=== PATIENT | female | born 2000 | race Caucasian/White ===

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

== ENCOUNTER 2020-03-31 14:05 | Emergency (ER) | payer BC ==
--- OUTSIDE RECORDS SUMMARY | 2020-03-31 14:07 | XMS REPORT | Continuity of Care Document ---
:2000 Author Organization [facility] t Address [address] [place] [address] Care Team Providers Name Role Phone Doctor Unassigned, Name Attending Clinician Unavailable Gelacio WRIGHT M Attending Clinician Unavailable Rudi WRIGHT, L Attending Clinician Dede BENTON Attending Clinician Unavailable Dede BENTON Admitting Clinician Unavailable Problems Condition Condition Condition Status Onset Resolution Last Treating Co mments Source Name Details Category Date Date Treatment Clinician Date Retained Retained Disease [facility] l 00 Center Allergies, Adverse Reactions, Alerts Allergy Allergy Status Severity Reaction(s) Onset Inactive Treating Comm ents Source Name Type Date Date Clinician Clindamy Drug Active Hives [facility] Codeine Drug Active Shortness Of [facility] Social History Social Habit Start Date Stop Date Quantity Comments Source History [facility] - Alcohol Std Drinks Medica l Center History [facility] - Alcohol [facility]inge Medical Ledy ter Sex Assigned At [facility] Tobacco use and 2018-10-10 2018-10-[address] [facility] [facility] - exposure 00:00:00 00:00:00 Medical Center Alcohol intake 2018-10-10 2018-10-[address] [facility] Evelyn es - 00:00:00 00:00:00 non-drinker of Medical Ce nter alcohol (finding) History [facility] 2018-10-07 2018-10-07 1 JOSELINE Gauthier Lusurinder - Alcohol Frequency 00:00:00 00:00:00 Medical Center Smoking Status Start Date Stop Date Source Never smoker [facility] Medications Ordered Filled Start Stop Current Ordering Indication Dosage Frequency Signature Comments Components Source Medication Medication Date Date Medication? Clinician (SIG) Name Name medroxyPROG 2019- Yes medroxypro [facility] - (DEPO-PROVE 12:21: 150 mg/mL M edical RA) 150 46 intramuscu Center mg/mL lar injection suspension INJECT 1 ML EVERY 3 MONTHS BY INTRAMUSCU LAR ROUTE DIRECTED. gabapentin Yes 300mg Take [address] (NEURONTIN) 7-26 mg by [facility] - 300 MG 12:21: mouth 3 Medical capsule 46 (three) Center times daily as needed. Procedures This patient has no known procedures. Plan of Care Planned Activity Planned Date Details Comments Source Future Scheduled 2019-11-[address] [facility] - Test 00:00:00 (#1) [code = [facility] Center INFLUENZA VACCINE (#1)] Encounters Start End Encounter Admission Attending Care Care Encounter Source Date/Time Date/Time Type Type Clinicians Facility Department ID 2019-10-19 2019-10-19 Orders Doctor BOBBY [id number] 00:00:00 00:00:00 Only Unassigned, HODA [id number] [place] [facility] [id number] [id number] 2019-05-11 2019-05-11 Office HAZEL Benton [id number] 08:23:18 09:24:01 Visit Reddy Marrero AMBULATOR [id number] Y [id number] [id number] 2019-01-13 2019-01-13 Office HAZEL Benton [id number] 15:18:55 15:43:31 Visit Reddy Marrero AMBULATOR [id number] Y [id number] [id number] 2018-10-23 2018-10-23 Office HAZEL Benton [id number] 15:38:13 16:06:20 Visit Reddy Marrero AMBULATOR [id number] Y [id number] [id number] 2018-10-15 2018-10-15 Orders Doctor BOBBY [id number] 00:00:00 00:00:00 Only Unassigned, HODA [id number] [place] [address]686 [id number] 2018-10-13 2018-10-13 [facility] [id number] 12:12:29 23:59:00 Encounter Michael Evans [id number] [place] 4.2.7.2.686 [place] [id number] 2018-10-13 2018-10-13 Orders Doctor BOBBY [id number] 00:00:00 00:00:00 Only Unassigned, HODA [id number] [place] [address]686 [id number] Results Test Description Test Time Test Comments Results Result Comments Source TISSUE EXAM 2018-10-13 Surgical Pathology 10:41:00 Report Case: [id number] Authorizing Provider: Reddy Benton MD Collected: 10/10/2018 1111 Ordering Location: [facility] OR Received: 10/10/2018 1619 Perioperative Services Pathologist: Tammy Britt MD Specimen: Explant, hardware removed from left ankle 5 screws and 1 plate ANKLE, LEFT, HARDWARE REMOVED: - ORTHOPEDIC HARDWARE IDENTIFIED (SEE COMMENT)CG/pl Signing Pathologist Direct Phone Line: [phone] icay signed by Tammy Britt MD on 10/13/2018 at 10:41 [id number] and postop diagnosis: mechanical complications of internal orthopedic device, implanted graft, subsequent encounter Explant, hardware removed from left ankle, 5 screws and 1 plateReceived fresh labeled with the patient's name, accession number and "explant" are five fully threaded metallic screws ranging 2.0-3.1 cm in length, each 0.3 cm in diameter. Also received is a metallic plate measuring 7.1 x 0.9 x 0.1 cm. The plate has six holes each measuring 0.5 cm in diameter. The plate is inscribed with [id number] [id number] A gross photograph is taken. No sections are submitted - gross only. CG/pl SCREEN, URINE 2018-10-10 06:32:00 Test Item Value Reference Range Interpretation Comme nts TEST URINE (BEAKER) (test code = 583) Negative [id number] 06:26:00 Test Item Value Reference Range Interpretation Comments HEMOGLOBIN (BEAKER) (test code = 13.5 GM/DL 11.2-15.7 410)
--- OUTSIDE RECORDS SUMMARY | 2020-03-31 14:07 | XMS REPORT | Clinical Summary ---
:2000 Author Organization [facility] Address [address] [place] [address] Care Team Providers Name Role Phone Unavailable Primary Care Provider Unavailable Allergies Active Allergy Reactions Severity Noted Date Comments Clindamycin Hcl Hives Medium 10/05/2018 Codeine Shortness Of Breath High 10/05/2018 Medications Medication Sig Dispensed Refills Start End Status Date Date medroxyPROGESTERone medroxyprogesterone 150 mg/mL intramuscular suspen alise 0 Active (DEPO-PROVERA) 150 INJECT 1 ML EVERY 3 MONTHS BY INTRAMUSCULAR ROUTE DIRECTED. mg/mL injection gabapentin (NEURONTIN) Take 300 mg by mouth 3 0 Active 300 MG capsule (three) times daily as needed. Active Problems Problem Noted Date Retained orthopedic hardware 10/10/2018 Social History Tobacco Use Types Packs/Day Years Used Date Never Smoker Smokeless Tobacco: Never Used Alcohol Use Drinks/Week oz/Week Comments No Alcohol Habits Answer Date Recorded How often do you have a drink containing alcohol? Never 10/07/2018 How many drinks containing alcohol do you have on a typical Not asked day when you are drinking? How often do you have six or more drinks on one occasion? No t asked Sex Assigned at Date Recorded Not on file Last Filed Vital Signs Not on file Plan of Treatment Health Maintenance Due Date Last Done Comments INFLUENZA VACCINE (#1) 2019 Results Not on fileafter 03/31/2019 Insurance Payer Benefit Plan Subscriber ID Effective Dates Phone Address Type / Group BLUE BCBS BLUE [id number] 2018-Dayana [phone] [address] PPO CROSS/BLUE OPTIONS t [address] [facility] [id number] Advance Directives For more information, please contact: [phone] Code Status Date Activated Date Inactivated Comments Full Code 10/10/2018 5:52 AM 10/10/2018 2:21 PM This code status was determined by: Patient
[2020-03-31 16:37] LABS: SARS-COV-2 RT PCR NEGATIVE (NEGATIVE)
--- NOTE | 2020-03-31 16:52 | ER ---
Nurse's Notes [facility] Name: Kacie Storm Age: 20 yrs Sex: Female : 2000 Arrival Date: 03/31/2020 Time: 14:07 Bed 8 Private MD: Diagnosis: Acute upper respiratory infection, unspecified Presentation: 03/31 14:11 Chief complaint: Patient states: SOB, chest congestion, sore throat, cough, runny nose, ca1 fever x 2 days. Denies N/V/D. Coronavirus screen: congestion, cough unrelated to allergies, difficulty breathing, runny nose, shortness of breath. Ebola Screen: Patient negative for fever greater than or equal to 101.5 degrees Fahrenheit, and additional compatible Ebola Virus Disease symptoms Patient denies exposure to infectious person. Patient denies travel to an Ebola-affected area in the 21 days before illness onset. No symptoms or risks identified at this time. Initial Sepsis Screen: Does the patient meet any 2 criteria? No. Patient's initial sepsis screen is negative. Does the patient have a suspected source of infection? No. Patient's initial sepsis screen is negative. Risk Assessment: Do you want to hurt yourself or someone else? Patient reports no desire to harm self or others. Onset of symptoms was March 31, 2020. 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 - Social history:: Smoking status: Patient denies any tobacco usage or history of. Screenin:43 Abuse screen: Denies threats or abuse. Nutritional screening: No deficits noted. rb3 Tuberculosis screening: No symptoms or risk factors identified. Fall Risk None identified. Assessment: 14:43 General: Appears in no apparent distress. comfortable, Behavior is calm, cooperative, rb3 Reports fever for. Neuro: Level of Consciousness is awake, alert, obeys commands, Oriented to person, place, time, situation. Cardiovascular: Patient's skin is warm and dry. Cardiovascular: Reports congestion. Respiratory: Reports shortness of breath cough that is Airway is patent Respiratory effort is even, unlabored, Respiratory pattern is regular, symmetrical. GI: No signs and/or symptoms were reported involving the gastrointestinal system. : No signs and/or symptoms were reported regarding the genitourinary system. EENT: Reports sore throat and runny nose. 14:43 Pain: Denies pain. rb3 15:41 Reassessment: Patient appears in no apparent distress at this time. No changes from rb3 previously documented assessment. 16:39 Reassessment: Patient appears in no apparent distress at this time. Patient and/or rb3 family updated on plan of care and expected duration. Pain level reassessed. Patient is alert, oriented x 3, equal unlabored respirations, skin warm/dry/pink. 17:27 Reassessment: Patient appears in no apparent distress at this time. No changes from rb3 previously documented assessment. Vital Signs: 14:11 BP 144 / 80; Pulse 103; Resp 19 S; Temp 98.1(TE); Pulse Ox 100% on R/A; Weight 88.45 kg ca1 (R); Height 5 ft. 3 in. (160.02 cm) (R); Pain 8/10; 15:30 BP 132 / 94; Pulse 84; Resp 16; Pulse Ox 100% ; rb3 16:30 BP 130 / 90; Pulse 79; Resp 17; Pulse Ox 100% ; rb3 17:30 BP 132 / 94; Pulse 81; Resp 16; Pulse Ox 100% ; rb3 14:11 Body Mass Index 34.54 (88.45 kg, 160.02 cm) ca1 ED Course: 14:07 Patient arrived in ED. as 14:12 Triage completed. ca1 14:13 Arm band placed on right wrist. ca1 14:41 Yadiel Armenta PA is PHCP. [facility] 14:41 Vineet Mott MD is Attending Physician. [facility] 14:43 Patient has correct armband on for positive identification. Bed in low position. Call rb3 light in reach. Side rails up X 1. Pulse ox on. NIBP on. 14:51 Sosa Sheth, RN is Primary Nurse. rb3 15:14 COVID swab sent to lab. Flu and/or RSV swab sent to lab. Strep swab sent to lab. rb3 15:53 Strep Sent. dh3 17:58 No provider procedures requiring assistance completed. Patient did not have IV access rb3 during this emergency room visit. Administered Medications: No medications were administered Outcome: 16:52 Discharge ordered by . dotty 17:58 Discharged to home ambulatory. rb3 17:58 Condition: stable 17:58 Discharge instructions given to patient, Instructed on discharge instructions, follow up and referral plans. medication usage, Demonstrated understanding of instructions, follow-up care, medications, Prescriptions given X 1. 17:59 Patient left the ED. rb3 Signatures: Yadiel Armenta PA PA jmm Martinez, Amelia as Herrera, Deanna 3 Maral Calzada, RN RN Sosa Flynn RN RN rb3
--- NOTE | 2020-03-31 16:53 | EDPHYS ---
Physician Documentation [facility] Name: Kacie Storm Age: 20 yrs Sex: Female : 2000 Arrival Date: 03/31/2020 Time: 14:07 Bed 8 Private MD: ED Physician Vineet Mott HPI: 03/31 15:06 This 20 yrs old Female presents to ER via Ambulatory with complaints of r/o jmm covid. 15:06 The patient or guardian reports cough. Onset: The symptoms/episode began/occurred jmm gradually, 3 day(s) ago. Modifying factors: The symptoms are alleviated by nothing. the symptoms are aggravated by nothing. Associated signs and symptoms: Pertinent positives: fever, sore throat. This is a 20 year old female with no chronic medical conditions that presents to the ED with complaints of cough, congestion, sore throat, fever beginning approx 2 days ago. . 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 - Social history:: Smoking status: Patient denies any tobacco usage or history of. ROS: 15:06 Constitutional: Positive for fever. jmm 15:06 ENT: Positive for sinus congestion, sore throat. 15:06 Respiratory: Positive for cough. 15:06 All other systems are negative. Exam: 15:06 Constitutional: This is a well developed, well nourished patient who is awake, alert, jmm and in no acute distress. Head/Face: atraumatic. Eyes: EOMI, no conjunctival erythema appreciated 15:06 Neck: Trachea midline, Supple Chest/axilla: Normal chest wall appearance and motion. Cardiovascular: Regular rate and rhythm. No edema appreciated Respiratory: Normal respirations, no respiratory distress appreciated Abdomen/GI: Non distended, soft Back: Normal ROM Skin: General appearance color normal MS/ Extremity: Moves all extremities, no obvious deformities appreciated, no edema noted to the lower extremities Neuro: Awake and alert, normal gait Psych: Behavior is normal, Mood is normal, Patient is cooperative and pleasant 15:06 ENT: Posterior pharynx: erythema, that is mild. Vital Signs: 14:11 BP 144 / 80; Pulse 103; Resp 19 S; Temp 98.1(TE); Pulse Ox 100% on R/A; Weight 88.45 kg ca1 (R); Height 5 ft. 3 in. (160.02 cm) (R); Pain 8/10; 15:30 BP 132 / 94; Pulse 84; Resp 16; Pulse Ox 100% ; rb3 16:30 BP 130 / 90; Pulse 79; Resp 17; Pulse Ox 100% ; rb3 17:30 BP 132 / 94; Pulse 81; Resp 16; Pulse Ox 100% ; rb3 14:11 Body Mass Index 34.54 (88.45 kg, 160.02 cm) ca1 MDM: 14:45 Patient medically screened. [facility] 16:50 Data reviewed: vital signs, nurses notes. Counseling: I had a detailed discussion with dotty the patient and/or guardian regarding: the historical points, exam findings, and any diagnostic results supporting the discharge/admit diagnosis, lab results, the need for outpatient follow up, to return to the emergency department if symptoms worsen or persist or if there are any questions or concerns that arise at home. ED course: Patient is alert and non toxic in appearance. No signs of resp distress appreciated. Patient advised to follow up with pcp and otherwise given strict return precautions. Patient understood and agrees with the plan of care. . 03/31 15:02 Order name: Strep; Complete Time: 16:11 [facility] 03/31 16:27 Order name: Throat Culture [facility] 03/31 16:38 Order name: COVID-19/FLU A+B; Complete Time: 16:49 EDWV Administered Medications: No medications were administered Disposition: 04/01 05:52 Co-signature as Attending Physician, Vineet Mott MD I agree with the assessment and kdr plan of care. Disposition: 03/31/20 16:52 Discharged to Home. Impression: Acute upper respiratory infection, unspecified. - Condition is Stable. - Discharge Instructions: Pharyngitis, Upper Respiratory Infection, Adult. - Prescriptions for Zithromax Z- Donaldo 250 mg Oral Tablet - take 1 tablet by ORAL route as directed for 5 days Day 1 - take two (2) tablets one time. Day 2, 3, 4 , 5 take one (1) tablet once daily.; 6 tablet. - Medication Reconciliation Form, Thank You Letter, Antibiotic Education, Prescription Opioid Use form. - Follow up: Private Physician; When: 2 - 3 days; Reason: Recheck today's complaints, Continuance of care, Re-evaluation by your physician. Signatures: Dispatcher [employer] EDMS Vineet Mott MD MD kdr Mickail, Joel, PA PA jmm Acob, Cheryl, RN RN ca1 Sosa Sheth RN RN rb3 Corrections: (The following items were deleted from the chart) 03/31 15:49 15:01 Influenza Screen (A \T\ B)+BA.LAB.BRZ ordered. EDWV EDMS 15:49 15:01 CORONAVIRUS+MR.LAB.BRZ ordered. [facility] EDMS 17:59 16:52 03/31/2020 16:52 Discharged to Home. Impression: Acute upper respiratory rb3 infection, unspecified. Condition is Stable. Forms are Medication Reconciliation Form, Thank You Letter, Antibiotic Education, Prescription Opioid Use. Follow up: Private Physician; When: 2 - 3 days; Reason: Recheck today's complaints, Continuance of care, Re-evaluation by your physician. dotty
[2020-03-31 18:05] VITALS: TEMP 98.1; O2SAT 100
[2020-03-31 18:09] VITALS: BP 132/94
== END 2020-03-31 17:59 | disposition home or self-care (01) ==
LOC: ER 14:05
DX: J06.9 Acute upper respiratory infection, unspecified (principal); Z20.822 Contact with and (suspected) exposure to COVID-19; Z88.3 Allergy status to other anti-infective agents; Z88.5 Allergy status to narcotic agent
CPT/HCPCS: 87070; 87081; 0240U; 99283

== ENCOUNTER 2024-02-16 06:20 | Inpatient (IN) | payer BC ==
[2024-02-16 07:08] LABS: Absolute Basophils 0.1 K/uL (0-0.5); Absolute Eosinophils 0.1 K/uL (0-0.5); Absolute Monocytes 0.4 K/uL (0.1-1.3); Absolute Neutrophil 5.8 K/uL (1.8-8.0); Basophils % 1.4 % (0-1.3); Eosinophils % 0.8 % (0-4.4); Hematocrit 41.8 % (36.0-45.0); Hemoglobin 14.1 g/dL (12.0-15.0); Lymphocytes % 23.2 % (15.3-44.8); MCH 28.7 pg (27.0-35.0); MCHC 33.7 g/dL (32.0-36.0); MCV 85.3 fL (80-100); MPV 8.3 fL (7.6-11.3); Monocytes % 5.2 % (3.3-12.3); Neutrophils % 69.4 % (41.7-73.7); Nucleated Red Blood Cells % 0.2 % (0-0); Platelets 267 thou/uL (152-406); RBC Red Blood Cell Count 4.91 M/uL (3.86-4.86); Red Cell Distribution Width 13.5 % (12.1-15.2)
[2024-02-16] MEDS ORDERED: ONDANSETRON 4 MG/2 ML VIAL ONE (07:12)
[2024-02-16] MEDS ORDERED: NA CHLORIDE 0.9% 1,000 ML ONE ×2 (07:12→07:38)
[2024-02-16 07:26] LABS: ALT/SGPT 50 U/L (13-56); AST/SGOT 34 U/L (15-37); Albumin 4.3 g/dL (3.4-5.0); Albumin/Globulin Ratio 1.2 (1.1-1.8); Alkaline Phosphatase 76 U/L (45-117); Anion Gap 15.9 mEq/L (5.0-15.0); BUN Blood Urea Nitrogen 9 mg/dL (7-18); Bicarbonate 15 mEq/L (21-32); Bilirubin Direct 0.6 mg/dL (0-0.2); Bilirubin Indirect, Calculated 0.6 mg/dL (0.2-0.8); Bilirubin Total 1.2 mg/dL (0.2-1.0); Globulin 3.6 g/dL (2.3-3.5); Glomerular Filtration Rate 109 ml/min (=/>90); Glucose Level 89 mg/dL (74-106); NT PRO-BNP 39 pg/mL (<125); Potassium 2.9 mEq/L (3.5-5.1); Protein, Total 7.9 g/dL (6.4-8.2); Sodium Level 139 mEq/L (136-145); Troponin High Sensitivity < 3.0 pg/mL (<58.9)
[2024-02-16] MEDS ORDERED: NS KCL 20MEQ 1,000 ML IV ONE (07:38)
[2024-02-16] MEDS ORDERED: KCL 20 MEQ/100 mL IVPB 100 ML IV ONE (07:39)
[2024-02-16 07:47] LABS: Specific Gravity > 1.030 (1.005-1.030); Sqamous Epithelial <5 /HPF (None Seen); Transitional Epithelial <5 /HPF (None Seen); Urine Bacteria <20 /HPF (<20); Urine Bilirubin NEGATIVE (Negative); Urine Blood Negative (Negative); Urine Clarity Turbid (Clear); Urine Color Yellow (Yellow); Urine Culture Reflex Order NOT NEEDED; Urine Glucose NEGATIVE (Negative); Urine Ketones 4+ (Over) (Negative); Urine Micro Reflex YN NO BILL MICROSCOPIC; Urine Mucus 2+ /HPF (None Seen); Urine Nitrite NEGATIVE (Negative); Urine Protein 2+ (Negative); Urine RBC <5 /HPF (None Seen); Urine Urobilinogen 1+ (Normal)
--- NOTE | 2024-02-16 07:53 | EDPHYS ---
Physician Documentation [facility] Name: Kacie Storm Age: 24 yrs Sex: Female : 2000 Arrival Date: 02/16/2024 Time: 06:20 Bed 20 Private MD: ED Physician Melvin Mays HPI: 02/15 07:33 This 24 yrs old Female presents to ER via Ambulatory with complaints of Chest main Pain, Numbness Of Arm, TINGLING IN UPP EXT. 07:33 The patient or guardian reports chest pain that is located primarily in the epigastric main area. The pain does not radiate. Associated signs and symptoms: The patient has no apparent associated signs or symptoms. The chest pain is described as causing indigestion. Modifying factors: The symptoms are alleviated by eating, the symptoms are aggravated by nothing. Severity of pain: At its worst the pain was moderate in the emergency department the pain is unchanged. The patient has not experienced similar symptoms in the past. Historical: - Allergies: 07:26 Clindamycin; kj2 07:26 Codeine; kj2 - Immunization history:: Adult Immunizations unknown. - Infectious Disease History:: Denies. - Social history:: Smoking status: unknown. ROS: 07:35 Constitutional: Negative for fever, chills, and weight loss, Eyes: Negative for injury, main pain, redness, and discharge, ENT: Negative for injury, pain, and discharge, Neck: Negative for injury, pain, and swelling, Cardiovascular: Negative for chest pain, palpitations, and edema, Respiratory: Negative for shortness of breath, cough, wheezing, and pleuritic chest pain, Back: Negative for injury and pain, : Negative for injury, bleeding, discharge, and swelling, MS/Extremity: Negative for injury and deformity, Skin: Negative for injury, rash, and discoloration, Neuro: Negative for headache, weakness, numbness, tingling, and seizure, Psych: Negative for depression, anxiety, suicide ideation, homicidal ideation, and hallucinations, Allergy/Immunology: Negative for hives, rash, and allergies, Endocrine: Negative for neck swelling, polydipsia, polyuria, polyphagia, and marked weight changes, Hematologic/Lymphatic: Negative for swollen nodes, abnormal bleeding, and unusual bruising, 07:35 Abdomen/GI: Positive for abdominal pain, nausea and vomiting, Exam: 07:35 Constitutional: This is a well developed, well nourished patient who is awake, alert, main and in no acute distress. Head/Face: Normocephalic, atraumatic. Eyes: Pupils equal round and reactive to light, extra-ocular motions intact. Lids and lashes normal. Conjunctiva and sclera are non-icteric and not injected. Cornea within normal limits. Periorbital areas with no swelling, redness, or edema. ENT: Nares patent. No nasal discharge, no septal abnormalities noted. Tympanic membranes are normal and external auditory canals are clear. Oropharynx with no redness, swelling, or masses, exudates, or evidence of obstruction, uvula midline. Mucous membranes moist. Neck: Trachea midline, no thyromegaly or masses palpated, and no cervical lymphadenopathy. Supple, full range of motion without nuchal rigidity, or vertebral point tenderness. No Meningismus. Chest/axilla: Normal chest wall appearance and motion. Nontender with no deformity. No lesions are appreciated. Cardiovascular: Regular rate and rhythm with a normal S1 and S2. No gallops, murmurs, or rubs. Normal PMI, no JVD. No pulse deficits. Respiratory: Lungs have equal breath sounds bilaterally, clear to auscultation and percussion. No rales, rhonchi or wheezes noted. No increased work of breathing, no retractions or nasal flaring. Back: No spinal tenderness. No costovertebral tenderness. Full range of motion. Skin: Warm, dry with normal turgor. Normal color with no rashes, no lesions, and no evidence of cellulitis. MS/ Extremity: Pulses equal, no cyanosis. Neurovascular intact. Full, normal range of motion., bilateral aka Neuro: Awake and alert, GCS 15, oriented to person, place, time, and situation. Cranial nerves II-XII grossly intact. Motor strength 5/5 in all extremities. Sensory grossly intact. Cerebellar exam normal. Normal gait. Psych: Awake, alert, with orientation to person, place and time. Behavior, mood, and affect are within normal limits. 07:35 Abdomen/GI: Inspection: abdomen appears normal, Bowel sounds: normal, Palpation: moderate abdominal tenderness, Liver: no appreciated palpable abnormalities, Hernia: not appreciated, 08:47 ECG was reviewed by the Attending Physician. [facility] Vital Signs: 06:30 BP 132 / 77; Pulse 121; Resp 18; Temp 97.9(O); Pulse Ox 100% on R/A; Weight 89.81 kg; oe Height 5 ft. 3 in. ; Pain 7/10; 07:30 BP 110 / 77; Pulse 88; Resp 16; Pulse Ox 100% on R/A; db 08:46 BP 107 / 94; Pulse 88; Resp 16; Pulse Ox 100% on R/A; db 09:00 BP 98 / 58; Pulse 99; Resp 16; Pulse Ox 100% on R/A; db 09:30 BP 113 / 77; Pulse 87; Resp 18; Pulse Ox 100% on R/A; db 06:30 Body Mass Index 35.07 (89.81 kg, 160.02 cm) oe 06:30 Pain Scale: Adult oe MDM: 07:04 Medical Screening Exam initiated main 07:39 Differential diagnosis: abnormal EKG, acute myocardial infarction, anxiety, main cholecystitis, Cholelithiasis gastritis, pancreatitis, peptic ulcer disease, pneumonia, stable angina. HEART Score: History: Slightly Suspicious (0), ECG: Normal (0), Age: < or = 45 years (0), Risk Factors: No Risk Factors Known (0), Troponin: < or = 1 x Normal Limit (0). PATRICK Risk Score: TOTAL SCORE = 0. Data reviewed: vital signs, nurses notes, EMS record, lab test result(s), EKG, radiologic studies, plain films. Consideration of Admission/Observation Escalation of care including admission/observation considered. Independent interpretation of the following test(s) in the Emergency Department EKG: See my EKG interpretation above. Historians other than the Patient: Parent: mom well informed. Care significantly affected by the following chronic conditions: Obesity, obesity. 02/15 06:34 Order name: Basic Metabolic Panel; Complete Time: 07:28 sp4 02/15 06:34 Order name: CBC with Diff; Complete Time: 07: sp4 02/15 06:34 Order name: LFT's; Complete Time: 07:28 sp4 02/15 06:34 Order name: NT PRO-BNP; Complete Time: 07:28 sp4 02/15 06:34 Order name: Troponin HS; Complete Time: 07: sp4 02/15 06:34 Order name: Urinalysis W/Microscopic; Complete Time: 08:22 sp4 02/15 06:34 Order name: Urine Drug Screen sp4 02/15 06:34 Order name: Test, Urine; Complete Time: 08:22 sp4 02/15 09:00 Order name: Basic Metabolic Panel EDMS 02/15 09:00 Order name: Basic Metabolic Panel EDMS 02/15 09:00 Order name: Basic Metabolic Panel EDMS 02/15 09:00 Order name: Basic Metabolic Panel EDMS 02/15 09:00 Order name: Basic Metabolic Panel EDMS 02/15 09:00 Order name: Basic Metabolic Panel EDMS 02/15 09:00 Order name: Basic Metabolic Panel EDMS 02/15 09:00 Order name: Basic Metabolic Panel EDMS 02/15 09:00 Order name: CBC with Automated Diff EDMS 02/15 09:00 Order name: CBC with Automated Diff EDMS 02/15 09:00 Order name: CBC with Automated Diff EDMS 02/15 09:00 Order name: CBC with Automated Diff EDMS 02/15 09:00 Order name: CBC with Automated Diff EDMS 02/15 09:00 Order name: CBC with Automated Diff EDMS 02/15 09:00 Order name: CBC with Automated Diff EDMS 02/15 09:00 Order name: CBC with Automated Diff EDMS 02/15 09:00 Order name: Lipid Profile EDMS 02/15 09:00 Order name: Lipid Profile EDMS 02/15 09:00 Order name: Magnesium EDMS 02/15 09:00 Order name: Magnesium EDMS 02/15 09:00 Order name: Magnesium EDMS 02/15 09:00 Order name: Magnesium EDMS 02/15 09:00 Order name: Magnesium EDMS 02/15 09:00 Order name: Magnesium EDMS 02/15 09:00 Order name: Magnesium EDMS 02/15 09:00 Order name: Magnesium EDMS 02/15 09:00 Order name: Phosphorus EDMS 02/15 09:00 Order name: Phosphorus EDMS 02/15 09:00 Order name: Phosphorus EDMS 02/15 09:00 Order name: Phosphorus EDMS 02/15 09:00 Order name: Phosphorus EDMS 02/15 09:00 Order name: Phosphorus EDMS 02/15 09:00 Order name: Phosphorus EDMS 02/15 09:00 Order name: Phosphorus EDMS 02/15 09:00 Order name: Troponin High Sensitivity EDMS 02/15 09:00 Order name: Troponin High Sensitivity EDMS 02/15 09:00 Order name: Troponin High Sensitivity EDMS 02/15 06:34 Order name: XRAY Chest (1 view); Complete Time: 08:49 sp4 02/15 07:35 Order name: US Abdomen Limited; Complete Time: 08:49 [facility] 02/15 07:39 Order name: CT Abd/Pelvis - IV Contrast Only; Complete Time: 08:49 main 02/15 06:34 Order name: Cardiac monitoring; Complete Time: 07:47 sp4 02/15 06:34 Order name: EKG - Nurse/Tech; Complete Time: 06:51 sp4 02/15 06:34 Order name: IV Saline Lock; Complete Time: 06:51 sp4 02/15 06:34 Order name: Labs collected and sent; Complete Time: 06:51 sp4 02/15 06:34 Order name: O2 Per Protocol; Complete Time: 07:47 sp4 02/15 06:34 Order name: O2 Sat Monitoring; Complete Time: 07:47 sp4 EC:47 Rate is 106 beats/min. Rhythm is regular. QRS [place] is Normal. OK interval is normal. main QRS interval is normal. QT interval is normal. No Q waves. T waves are Normal. No ST changes noted. Clinical impression: NSR w/ Non-specific ST/T Changes and No evidence of ischemia. Interpreted by me. Reviewed by me. Administered Medications: 07:18 Drug: NS 0.9% IV 1000 ml IV at 1000 ml once; to be given as a bolus over 60 minutes db Route: IV; Rate: 1000 ml; Site: right antecubital; 09:33 Follow up: Response: No adverse reaction; IV Status: Completed infusion; IV Intake: db 1000ml 07:18 Drug: Ondansetron IVP 4 mg IVP once; over 2 minutes Route: IVP; Site: right antecubital;db 08:00 Follow up: Response: No adverse reaction; Nausea is decreased db 07:46 Drug: NS 0.9% with KCl IV 20 mEq/L 1000 ml IV at 125 ml/hr continuous Route: IV; Rate: db 125 ml/hr; Site: right antecubital; 10:06 Follow up: Response: No adverse reaction; IV Status: Infusion continued upon admission db 07:47 Drug: NS 0.9% IV 1000 ml IV at 1000 ml once; to be given as a bolus over 60 minutes db Route: IV; Rate: 1000 ml; Site: right antecubital; 10:05 Follow up: Response: No adverse reaction; IV Status: Completed infusion; IV Intake: db 1000ml 07:47 Drug: Potassium Chloride IV 20 mEq IV at per protocol once; administer over 1-2 hours db Route: IV; Rate: per protocol; Site: right antecubital; 10:05 Follow up: Response: No adverse reaction; IV Status: Completed infusion; IV Intake: db 100ml 08:10 Drug: Famotidine IVP 20 mg IVP once; dilute with 10 mL 0.9% NaCl; give over 2 minutes db Route: IVP; Site: right antecubital; 09:33 Follow up: Response: No adverse reaction db Disposition Summary: 02/16/24 07:52 Hospitalization Ordered Notes: Hospitalization Status: Inpatient Admission main Provider: Clem Cage cha [facility] main Condition: Stable main Problem: new main Symptoms: have improved main Bed/Room Type: Standard main Room Assignment: 410(02/16/24 09:35) sp Diagnosis - Dehydration main - Vomiting main - Hypokalemia main Forms: - Medication Reconciliation Form main - SBAR form main - Leadership Thank You Letter main Signatures: Dispatcher [employer] EDMelvin Rey MD MD cha Pinkerton, Shawna sp Benton, Danielle, RN RN Leonid Ramos MD MD sp4 Masha Guajardo RN RN kj2 Corrections: (The following items were deleted from the chart) 06:34 06:34 BASIC METABOLIC PANEL+C.LAB.BRZ ordered. EDMS EDMS 06:34 06:34 CBC+H.LAB.BRZ ordered. EDMS EDMS 06:34 06:34 HEPATIC FUNCTION+C.LAB.BRZ ordered. EDMS EDMS 06:34 06:34 PROBNP+C.LAB.BRZ ordered. EDMS EDMS 06:34 06:34 Troponin High Sensitivity+C.LAB.BRZ ordered. EDMS EDMS 06:34 06:34 Chest Single View+RAD.RAD.BRZ ordered. EDMS EDMS 06:34 06:34 Urinalysis W/Microscopic+U.LAB.BRZ ordered. EDMS EDMS 06:34 06:34 URINE DRUG SCREEN+UC.LAB.BRZ ordered. EDMS EDMS 06:34 06:34 Test, Urine+UC.LAB.BRZ ordered. EDMS EDMS 07:35 07:35 Abdomen Limited+US.RAD.BRZ ordered. EDMS EDMS 08:06 07:31 Abdomen Complete+US.RAD.BRZ ordered. EDMS EDMS 09:08 07:52 main sp 09:35 09:08 409 sp sp
--- NOTE | 2024-02-16 07:53 | ER ---
Nurse's Notes [facility] Name: Kacie Storm Age: 24 yrs Sex: Female : 2000 Arrival Date: 02/16/2024 Time: 06:20 Bed 20 Private MD: Diagnosis: Dehydration;Vomiting;Hypokalemia Presentation: 02/15 06:30 Chief complaint: Patient states: chest pain, numbness and tingling in arms, nausea and kj2 vomiting. Coronavirus screen: Client denies travel out of the [place] in the last 14 days. Ebola Screen: No symptoms or risks identified at this time. Initial Sepsis Screen: Does the patient meet any 2 criteria? No. Patient's initial sepsis screen is negative. Does the patient have a suspected source of infection? No. Patient's initial sepsis screen is negative. Risk Assessment: Do you want to hurt yourself or someone else? Patient reports no desire to harm self or others. Onset of symptoms was February 14, 2024. 06:30 Method Of Arrival: Ambulatory kj2 06:30 Acuity: KYLAH 3 kj2 Triage Assessment: 06:30 General: Appears in no apparent distress. uncomfortable, Behavior is cooperative. Pain: kj2 Complains of pain in chest. Neuro: Level of Consciousness is awake, alert, obeys commands, Oriented to person, place, time, situation. Cardiovascular: Patient's skin is warm and dry. Respiratory: Airway is patent Respiratory effort is unlabored. GI: Reports nausea. : No signs and/or symptoms were reported regarding the genitourinary system. Historical: - Allergies: 07:26 Clindamycin; kj2 07:26 Codeine; kj2 - Immunization history:: Adult Immunizations unknown. - Infectious Disease History:: Denies. - Social history:: Smoking status: unknown. Screenin:21 [facility] ED Fall Risk Assessment (Adult) History of falling in the last 3 months, db including since admission No falls in past 3 months (0 pts) Confusion or Disorientation No (0 pts) Intoxicated or Sedated No (0 pts) Impaired Gait No (0 pts) Mobility Assist Device Used No (0 pt) Altered Elimination No (0 pt) Score/Fall Risk Level 0 - 2 = Low Risk Oriented to surroundings, Maintained a safe environment. Abuse screen: Denies threats or abuse. Denies injuries from another. Nutritional screening: No deficits noted. Tuberculosis screening: No symptoms or risk factors identified. Assessment: 06:40 General: see triage assessment. kj2 07:21 Reassessment: Patient appears in no apparent distress at this time. Patient and/or db family updated on plan of care and expected duration. Pain level reassessed. Patient is alert, oriented x 3, equal unlabored respirations, skin warm/dry/pink. PT IS AMBULATORY TO RESTROOM. General: Appears in no apparent distress. uncomfortable, Behavior is calm, cooperative, appropriate for age. Pain: Complains of pain in chest Pain does not radiate. Pain began gradually. Neuro: Level of Consciousness is awake, alert, obeys commands, Oriented to person, place, time, situation. Cardiovascular: Reports chest pain. Respiratory: Airway is patent Respiratory effort is even, unlabored, Respiratory pattern is regular, symmetrical. GI: Reports nausea, vomiting. 07:47 Reassessment: Patient appears in no apparent distress at this time. Patient and/or db family updated on plan of care and expected duration. Pain level reassessed. LEASING CONSULTANT IS AT PATIENT BEDSIDE. 08:38 Reassessment: HOSPITALIST DIVISION SERVICE MANAGER SPEAKING WITH PATIENT. db 09:19 Reassessment: Patient appears in no apparent distress at this time. Patient and/or db family updated on plan of care and expected duration. Pain level reassessed. Patient is alert, oriented x 3, equal unlabored respirations, skin warm/dry/pink. PATIENT AMBULATORY TO RESTROOM. 09:24 Reassessment: REPORT FAXED FOR 409. db 09:30 Reassessment: Patient appears in no apparent distress at this time. Patient and/or db family updated on plan of care and expected duration. Pain level reassessed. Patient is alert, oriented x 3, equal unlabored respirations, skin warm/dry/pink. Patient states symptoms have improved. Vital Signs: 06:30 BP 132 / 77; Pulse 121; Resp 18; Temp 97.9(O); Pulse Ox 100% on R/A; Weight 89.81 kg; oe Height 5 ft. 3 in. ; Pain 7/10; 07:30 BP 110 / 77; Pulse 88; Resp 16; Pulse Ox 100% on R/A; db 08:46 BP 107 / 94; Pulse 88; Resp 16; Pulse Ox 100% on R/A; db 09:00 BP 98 / 58; Pulse 99; Resp 16; Pulse Ox 100% on R/A; db 09:30 BP 113 / 77; Pulse 87; Resp 18; Pulse Ox 100% on R/A; db 06:30 Body Mass Index 35.07 (89.81 kg, 160.02 cm) oe 06:30 Pain Scale: Adult oe ED Course: 06:21 Patient arrived in ED. jj6 06:37 EKG done, by ED staff, reviewed by Leonid Pardo MD. oe 06:40 No provider procedures requiring assistance completed. Patient maintains SpO2 kj2 saturation greater than 95% on room air. 06:50 Inserted saline lock: 20 gauge in right antecubital area, using aseptic technique. oe Blood collected. Flushed with 10 mL NS. 06:51 XRAY Chest (1 view) In Process Unspecified. EDMS 06:51 Basic Metabolic Panel Sent. oe 06:51 CBC with Diff Sent. oe 06:51 LFT's Sent. oe 06:51 NT PRO-BNP Sent. oe 06:51 Troponin HS Sent. oe 07:02 Masha Guajardo, RN is Primary Nurse. kj2 07:04 Melvin Mays MD is Attending Physician. main 07:23 Urine collected: clean catch specimen, clear. db 07:23 Patient has correct armband on for positive identification. Bed in low position. Call db light in reach. Side rails up X 1. Client placed on continuous cardiac and pulse oximetry monitoring. NIBP monitoring applied. puddler helper on. Pulse ox on. NIBP on. Warm blanket given. Pillow given. 07:26 Triage completed. kj2 07:32 Urinalysis W/Microscopic Sent. db 07:32 Urine Drug Screen Sent. db 07:32 Test, Urine Sent. db 07:51 Clem Cage is Hospitalizing Provider. main 08:09 US Abdomen Limited In Process Unspecified. EDMS 08:[address] db 08:22 CT Abd/Pelvis - IV Contrast Only In Process Unspecified. EDMS 10:06 Patient admitted, IV remains in place. db 10:06 Provided Education on: ADMISSION. db Administered Medications: 07:18 Drug: NS 0.9% IV 1000 ml IV at 1000 ml once; to be given as a bolus over 60 minutes db Route: IV; Rate: 1000 ml; Site: right antecubital; 09:33 Follow up: Response: No adverse reaction; IV Status: Completed infusion; IV Intake: db 1000ml 07:18 Drug: Ondansetron IVP 4 mg IVP once; over 2 minutes Route: IVP; Site: right antecubital;db 08:00 Follow up: Response: No adverse reaction; Nausea is decreased db 07:46 Drug: NS 0.9% with KCl IV 20 mEq/L 1000 ml IV at 125 ml/hr continuous Route: IV; Rate: db 125 ml/hr; Site: right antecubital; 10:06 Follow up: Response: No adverse reaction; IV Status: Infusion continued upon admission db 07:47 Drug: NS 0.9% IV 1000 ml IV at 1000 ml once; to be given as a bolus over 60 minutes db Route: IV; Rate: 1000 ml; Site: right antecubital; 10:05 Follow up: Response: No adverse reaction; IV Status: Completed infusion; IV Intake: db 1000ml 07:47 Drug: Potassium Chloride IV 20 mEq IV at per protocol once; administer over 1-2 hours db Route: IV; Rate: per protocol; Site: right antecubital; 10:05 Follow up: Response: No adverse reaction; IV Status: Completed infusion; IV Intake: db 100ml 08:10 Drug: Famotidine IVP 20 mg IVP once; dilute with 10 mL 0.9% NaCl; give over 2 minutes db Route: IVP; Site: right antecubital; 09:33 Follow up: Response: No adverse reaction db Medication: 07:21 VIS not applicable for this client. db Intake: 09:33 IV: 1000ml; Total: 1000ml. db 10:05 IV: 100ml; Total: 1100ml. db 10:05 IV: 1000ml; Total: 2100ml. db Outcome: 07:52 Decision to Hospitalize by Provider. main 10:06 Admitted to Med/surg accompanied by tech, room 410, with chart, Report called to FAXED db 10:06 Condition: stable 10:06 Instructed on the need for admit, 10:08 Patient left the ED. db Signatures: Dispatcher [facility] EDID Melvin Mays MD MD cha Espinosa, Orlando oe Jeffries, Jennifer jj6 Calista Porras, RN RN db Masha Guajardo RN RN kj2 Corrections: (The following items were deleted from the chart) 07:04 07:02 BP 132 / 77; Pulse 121bpm; Resp 18bpm; Pulse Ox 100% RA; Temp 97.9F Oral; 89.81 oe kg; Height 5 ft. 3 in.; BMI: 35.0; Pain 7/10, Adult; oe 09:21 08:00 BP 165 / 96; Pulse 67bpm; Resp 16bpm; Pulse Ox 95% RA; db db
[2024-02-16] MEDS ORDERED: FAMOTIDINE 20 MG/2 ML VIAL IV ONE (08:03)
--- NOTE | 2024-02-16 08:34 | RAD REPORT ---
EXAMINATION: CT ABDOMEN AND PELVIS WITH CONTRAST CLINICAL INDICATION: ABD PAIN TECHNIQUE: CT abdomen and pelvis was performed, after the administration of IV contrast, as per [facility] protocol. Axial, sagittal and coronal reconstructions were obtained. One or more of the following dose reduction techniques were used: Automated exposure control, adjustment of the mA and k V according to patient size, and iterative reconstruction. Unless otherwise specified, incidental findings do not require dedicated imaging follow-up. COMPARISON: No prior exam. FINDINGS: LOWER CHEST: The visualized lung bases are clear. LIVER: Normal in size and contour. No focal lesion. Grossly unremarkable gallbladder. SPLEEN: Normal size. No focal lesion. PANCREAS: No mass, ductal dilation, or [place]-pancreatic fluid. ADRENALS: Normal; no mass. KIDNEYS: Normal size and contour. No hydronephrosis. GASTROINTESTINAL TRACT: No evidence of free air, significant intra-abdominal free fluid, bowel obstru ction or abscess. APPENDIX: Normal appendix. LYMPH NODES: No lymphadenopathy. MUSCULOSKELETAL: No acute or suspicious osseous abnormality. ADDITIONAL FINDINGS: Small fat-containing umbilical hernia. IMPRESSION: No acute or concerning abnormalities seen in the abdomen or pelvis.
--- NOTE | 2024-02-16 08:35 | RAD REPORT ---
EXAM: Right upper quadrant ultrasound. CLINICAL HISTORY: ABD PAIN COMPARISON: None. FINDINGS: Gallbladder: Small amount of sludge. No definitive stone seen. Bile ducts: No intrahepatic or extrahepatic biliary dilatation. Common bile duct measures 3 mm. Limited imaging of the liver shows no concerning finding. IMPRESSION: Small amount of sludge without definitive stone.
--- NOTE | 2024-02-16 08:44 | RAD REPORT ---
EXAMINATION: ONE VIEW CHEST XR CLINICAL INDICATION: CHEST PAIN TECHNIQUE: Frontal chest projection is submitted. Examination is limited by patient positioning and t echnique. COMPARISON: 03/20/2018 FINDINGS: Interstitial lung markings are prominent bilaterally which could indicate underlying viral pneumoniti s or reactive airway disease. No focal infiltrate suggestive of pneumonia is seen. The heart is normal in size. No displaced fractures identified.
[2024-02-16] MEDS ORDERED: ACETAMINOPHEN 325 MG TABLET PO PRN (08:51)
[2024-02-16 09:18] LABS: Barbiturates NEGATIVE (NEGATIVE); Benzodiazepines NEGATIVE (NEGATIVE); Cocaine NEGATIVE (NEGATIVE); METHAMPHETAM NEGATIVE (NEGATIVE); Methadone NEGATIVE (NEGATIVE); Opiates NEGATIVE (NEGATIVE); Phencyclidine NEGATIVE (NEGATIVE); THC Cannibis NEGATIVE (NEGATIVE)
[2024-02-16 10:28] VITALS: BMI 35.0
[2024-02-16] MEDS: ENOXAPARIN 40 MG/0.4 ML SQ SCH (10:50)
[2024-02-16] MEDS: ACETAZOLAMIDE 500 MG PO SCH (11:41)
[2024-02-16] MEDS ORDERED: SODIUM CHLORIDE 0.9% 10ML INJ IV PRN (11:41)
--- NOTE | 2024-02-16 11:44 | P.HP ---
Certification for Inpatient Patient admitted to: Observation With expected LOS: <2 Midnights Practitioner: I am a practitioner with admitting privileges, knowledge of patient current condition, hospital course, and medical plan of care. Services: Services provided to patient in accordance with Admission requirements found in Title 42 Section 412.3 of the Code of Federal Regulations Patient History Date of Service: 02/16/24 Reason for admission: metabolic acidosis 2/2 vomiting/diarrhea History of Present Illness: Kacie Storm is a 24-year-old female with past medical history of pseudotumor cerebri treated with Diamox who presents to the ED with nausea vomiting diarrhea since Saturday. She reports taking Mounjaro for weight loss by recommendation of neurology Dr. Caputo to maintain decreased cerebral pressure. Mounjaro dose was increased on Saturday and her nausea vomiting started . Laboratory evaluation significant for potassium 2.9, bicarb 15, anion gap 15.9, ketones in urine, lipid panel and lipase within normal limits, troponin within normal limits Chest xray reports "Interstitial lung markings are prominent bilaterally which could indicate underlying viral pneumonitis or reactive airway disease. No focal infiltrate suggestive of pneumonia is seen. The heart is normal in size. No displaced fractures identified." Right upper quadrant ultrasound "Small amount of sludge without definitive stone" CT abd/pelvis with contrast reports "No acute or concerning abnormalities seen in the abdomen or pelvis." Kacie will be admitted to hospitalist service for further evaluation and treatment. Allergies clindamycin [From Cleocin] Allergy (Verified 03/20/18 16:04) Itching/Hives/Rash codeine Adverse Reaction (Verified 03/20/18 16:04) chest pain,SOB Home Medications: Acetazolamide [Diamox Sequels] 1 cap PO DAILY 02/16/24 Tirzepatide [Mounjaro] 5 mg SQ EVERY 7TH DAY 02/16/24 - Past Medical/Surgical History Diabetic: No -: Irritable Bowel Syndrome -: left ankel fracturre - Family History Father History Unknown: Yes Mother -: Heart disease, Kidney disease Notes: PVC's, Mitral value prolapse - Social History Smoking Status: Never smoker Alcohol use: No CD- Drugs: No Caffeine use: No Place of Residence: Home Review of Systems Gastrointestinal: Nausea, Vomiting, Abdominal Pain Physical Examination - Vital Signs Temperature: 98.8 F Blood Pressure: 116/59 Pulse: 80 Respirations: 14 Pulse Ox (%): 99 - Physical Exam General: Alert, In no apparent distress, Oriented x3 HEENT: Atraumatic, Normocephalic Neck: Supple, 2+ carotid pulse no bruit Respiratory: Clear to auscultation bilaterally, Normal air movement Cardiovascular: Normal pulses, Regular rate/rhythm, Normal S1 S2 Capillary refill: <2 Seconds Gastrointestinal: Normal bowel sounds, Hypoactive, Tenderness (epigastric) Musculoskeletal: No clubbing Integumentary: No rashes Neurological: Normal speech, Normal tone - Studies Laboratory Data (last 24 hrs) 02/16/24 02/16/24 06:46 06:40 WBC 8.40 Hgb 14.1 Hct 41.8 Plt Count 267 Sodium 139 Potassium 2.9 L BUN 9 Creatinine 0.78 Glucose 89 Total Bilirubin 1.2 H AST 34 ALT 50 Alkaline Phosphatase 76 Assessment and Plan - Plan Assessment and plan Intractable vomiting and diarrhea 2/2 gastritis Metabolic acidosis with ketosis Hypokalemia -Right upper quadrant ultrasound "Small amount of sludge without definitive stone" -CT abd/pelvis with contrast reports "No acute or concerning abnormalities seen in the abdomen or pelvis." -Bicarb 15, anion gap 15.9, ketones in UA, potassium 2.9 -Lipase, magnesium, and lipid panel within normal limits -Protonix every 12 -Carafate ACHS -Phenergan, Dilaudid PRN -2 L normal saline given in the ED -D5 NS with potassium on the floor -NPO, Clear liquid diet did not tolerate, monitor for advancement -Reports increase in Mounjaro on Saturday, episode began -Last BM was Tuesday 02/13 (diarrhea) -Supportive care Pseudotumor cerebri -Continue home medication -Follow-up outpatient DVT PPx lovenox Full code LOS 24 hr OBS Discharge Plan: Home Plan to discharge in: 48 Hours - Advance Directives Does patient have a Living Will: No Does patient have a Durable POA for Healthcare: No
[2024-02-16] MEDS: PANTOPRAZOLE 40 MG INJ IVP SCH (12:00)
[2024-02-16] MEDS: SUCRALFATE 1 GM TABLET PO SCH (12:00)
[2024-02-16] MEDS: ONDANSETRON 4 MG/2 ML VIAL IV PRN (13:02)
[2024-02-16] MEDS: D5 0.9 NS 1,000 ML IV SCH (16:07)
[2024-02-16] MEDS: HYDROMORPHONE HCL 1 MG/ML INJ IV PRN (16:18)
[2024-02-16] MEDS: PROMETHAZINE INJ 25 MG/ML AMP IV PRN (16:18)
[2024-02-16] MEDS: D5 0.9 NS 1,000 ML with POTASSIUM CL 40 MEQ IV SCH (17:00)
[2024-02-16 17:25] LABS: Magnesium 2.1 mg/dL (1.6-2.4)
[2024-02-16] MEDS: POTASSIUM CL IV SCH (18:00)
[2024-02-16] MEDS: D5 NS IV SCH (18:00)
[2024-02-16] MEDS: KCL 20 MEQ/100 mL IVPB 20 MEQ/100 ML BAG IV SCH (18:24)
[2024-02-16 23:25] LABS: Potassium 3.7 mEq/L (3.5-5.1); Troponin High Sensitivity 3.8 pg/mL (<58.9)
[2024-02-17 05:56] LABS: Absolute Eosinophils 0.2 K/uL (0-0.5); Absolute Lymphocytes (CBC) 2.2 K/uL (0.7-4.9); Absolute Monocytes 0.6 K/uL (0.1-1.3); Absolute Neutrophil 3.4 K/uL (1.8-8.0); Basophils % 0.4 % (0-1.3); Eosinophils % 2.5 % (0-4.4); Hematocrit 35.1 % (36.0-45.0); Hemoglobin 11.5 g/dL (12.0-15.0); Lymphocytes % 34.4 % (15.3-44.8); MCH 28.8 pg (27.0-35.0); MCHC 32.8 g/dL (32.0-36.0); MCV 87.9 fL (80-100); MPV 8.6 fL (7.6-11.3); Monocytes % 9.2 % (3.3-12.3); Neutrophils % 53.5 % (41.7-73.7); Platelets 193 thou/uL (152-406); RBC Red Blood Cell Count 3.99 M/uL (3.86-4.86); Red Cell Distribution Width 14.2 % (12.1-15.2)
[2024-02-17 06:29] LABS: Anion Gap 13.8 mEq/L (5.0-15.0); Magnesium 2.1 mg/dL (1.6-2.4); Phosphorus 2.2 mg/dL (2.5-4.9); Potassium 3.8 mEq/L (3.5-5.1)
--- NOTE | 2024-02-17 18:03 | P.PN ---
Date of Service: 02/17/24 Subjective Awake still with mild abdominal pain and nausea will monitor to advance diet to CLD today Consulte GI, Recommends stopping Mounjaro as it causes gastroparesis ROS 10 point ROS as noted above, otherwise negative Physical Exam General: Alert and Oriented x3, NAD HEENT: Atraumatic, Normocephalic Neck: Supple, 2+ carotid pulse no bruit Respiratory: Clear to auscultation bilaterally, Normal air movement Cardiovascular: Normal pulses, RRR, Normal S1 S2 Capillary refill: <2 Seconds Gastrointestinal: Hypoactive, mild Tenderness (epigastric), soft on palpation Musculoskeletal: No clubbing Integumentary: No rashes Neurological: Normal speech, Normal tone Vitals Reviewed Problem list Intractable vomiting and diarrhea 2/2 gastritis Metabolic acidosis with ketosis Hypokalemia Pseudotumor cerebri Assessment and Plan Intractable vomiting and diarrhea 2/2 gastritis Metabolic acidosis with ketosis Hypokalemia-resolved -Right upper quadrant ultrasound "Small amount of sludge without definitive stone" -CT abd/pelvis with contrast reports "No acute or concerning abnormalities seen in the abdomen or pelvis." -Bicarb 15, anion gap 15.9, ketones in UA, potassium 2.9 -Potassium improving, goal of 4, anion gap closed, Bicarb 17-improved- -Lipase, magnesium, and lipid panel within normal limits -Protonix every 12 -Carafate ACHS -Phenergan, Dilaudid PRN -2 L normal saline given in the ED -D5 NS with potassium one liter today 02/16 -NPO Will advance to CLD as tolerated -Reports increase in Mounjaro on Saturday, episode began -Last BM was Tuesday 02/13 (diarrhea) -Supportive care -Dr Quezada consulted, Recommends stopping mounjaro Pseudotumor cerebri-stable -Continue home medication -Follow-up outpatient DVT PPx lovenox Full code LOS 24 hr Discharge Plan: Home
[2024-02-18 06:06] LABS: Absolute Eosinophils 0.1 K/uL (0-0.5); Absolute Monocytes 0.7 K/uL (0.1-1.3); Absolute Neutrophil 2.8 K/uL (1.8-8.0); Basophils % 0.3 % (0-1.3); Eosinophils % 2.5 % (0-4.4); Hematocrit 34.2 % (36.0-45.0); Hemoglobin 11.6 g/dL (12.0-15.0); Lymphocytes % 35.3 % (15.3-44.8); MCH 29.6 pg (27.0-35.0); MPV 8.2 fL (7.6-11.3); Monocytes % 11.6 % (3.3-12.3); Neutrophils % 50.3 % (41.7-73.7); Nucleated Red Blood Cells % 0.2 % (0-0); Platelets 204 thou/uL (152-406); RBC Red Blood Cell Count 3.93 M/uL (3.86-4.86); Red Cell Distribution Width 13.6 % (12.1-15.2)
[2024-02-18 06:21] LABS: Anion Gap 7.6 mEq/L (5.0-15.0); Magnesium 1.8 mg/dL (1.6-2.4); Phosphorus 2.5 mg/dL (2.5-4.9); Potassium 3.6 mEq/L (3.5-5.1)
[2024-02-18] MEDS: MAGNESIUM SULFATE 1 gm IVPB 1 GM/100 ML BAG IV ONE (09:07)
[2024-02-18] MEDS: POTASSIUM 25 MEQ EFFERV TAB PO ONE (09:08)
[2024-02-18 10:41] VITALS: O2SAT 98
--- NOTE | 2024-02-18 11:54 | P.DS ---
Admission Date: 02/17/24 Discharge Date: 02/18/24 Disposition: ROUTINE DISCHARGE Discharge Condition: GOOD Reason for Admission: metabolic acidosis 2/2 vomiting/diarrhea Brief History of Present Illness: Diagnosis Intractable vomiting and diarrhea 2/2 gastritis Metabolic acidosis with ketosis Hypokalemia Pseudotumor cerebri [facility] 02/16/2024 Kacie Storm is a 24-year-old female with past medical history of pseudotumor cerebri treated with Diamox who presents to the ED with nausea vomiting diarrhea since Saturday. She reports taking Mounjaro for weight loss by recommendation of neurology Dr. Caputo to maintain decreased cerebral pressure. Mounjaro dose was increased on Saturday and her nausea vomiting started . Laboratory evaluation significant for potassium 2.9, bicarb 15, anion gap 15.9, ketones in urine, lipid panel and lipase within normal limits, troponin within normal limits Chest xray reports "Interstitial lung markings are prominent bilaterally which could indicate underlying viral pneumonitis or reactive airway disease. No focal infiltrate suggestive of pneumonia is seen. The heart is normal in size. No displaced fractures identified." Right upper quadrant ultrasound "Small amount of sludge without definitive stone" CT abd/pelvis with contrast reports "No acute or concerning abnormalities seen in the abdomen or pelvis." Kacie will be admitted to hospitalist service for further evaluation and treatment. Hospital Course: Kacie Storm is a pleasant 24 year old female with a past medical history significant for pseudotumor cerebri treated with Diamox who was admitted to the [facility] on 02/16/24 for Intractable vomiting and diarrhea 2/2 gastritis. Kacie presented to the ED with nausea, vomiting, diarrhea, and epigastric pain since Saturday. She reports taking Mounjaro for weight loss by recommendation of neurology, Dr. Caputo, to maintain decreased cerebral pressure. Mounjaro dose was increased on Saturday and her nausea/vomiting started . Laboratory evaluation significant for potassium 2.9, bicarb 15, anion gap 15.9, ketones in urine, lipid panel and lipase within normal limits, troponin within normal limits. Chest xray reports "Interstitial lung markings are prominent bilaterally which could indicate underlying viral pneumonitis or reactive airway disease. No focal infiltrate suggestive of pneumonia is seen. The heart is normal in size. No displaced fractures identified." Right upper quadrant ultrasound "Small amount of sludge without definitive stone". CT abd/pelvis with contrast reports "No acute or concerning abnormalities seen in the abdomen or pelvis." She had a slow reduction of abdominal pain and nausea. No diarrhea this admission. After two days and remaining NPO she felt well enough to sit up in the bed. Dr. Quezada was consulted and recommended stopping the mounjaro as it causes gastroparesis. This morning, she was able to tolerate a yogurt and chocolate pudding, Bicarb returned to normal at 24 and she is fully hydrated with IVF infusion. The plan is to discharge with slow advancement of diet, starting with FLD to soft GI and follow up with Dr. Quezada On 02/18/24, Kacie was seen on morning rounds and deemed medically stable for discharge home with family support. Kacie was discharged with instructions to schedule follow-up appointments with Dr. Quezada and PCP. Kacie was provided prescriptions for phenergan, protonix, and tramadol. Physical Exam General: AAO x3, NAD HEENT: Atraumatic, Normocephalic Neck: Supple, 2+ carotid pulse no bruit Respiratory: Clear to auscultation bilaterally, Normal air movement Cardiovascular: Normal pulses, regular rate and rhythm, Normal S1 S2 Capillary refill: <2 Seconds Gastrointestinal: Normal active bowel sounds, Nontender, soft on palpation Musculoskeletal: No clubbing Integumentary: No rashes Neurological: Normal speech, Normal tone Vital Signs/Physical Exam: Temp Pulse Resp BP Pulse Ox 98.2 F 67 15 195/75 H 93 02/18/24 08:00 02/18/24 08:00 02/18/24 08:00 02/18/24 08:00 02/18/24 08:00 Laboratory Data at Discharge: WBC 5.60 thou/uL (4.3-10.9) 02/18/24 05:46 Hgb 11.6 g/dL (12.0-15.0) L 02/18/24 05:46 Hct 34.2 % (36.0-45.0) L 02/18/24 05:46 Plt Count 204 thou/uL (152-406) 02/18/24 05:46 Sodium 143 mEq/L (136-145) 02/18/24 05:46 Potassium 3.6 mEq/L (3.5-5.1) 02/18/24 05:46 BUN 3 mg/dL (7-18) L 02/18/24 05:46 Creatinine 0.59 mg/dL (0.55-1.02) 02/18/24 05:46 Glucose 94 mg/dL (74-106) 02/18/24 05:46 Phosphorus 2.5 mg/dL (2.5-4.9) 02/18/24 05:46 Magnesium 1.8 mg/dL (1.6-2.4) 02/18/24 05:46 Total Bilirubin 1.2 mg/dL (0.2-1.0) H 02/16/24 06:46 AST 34 U/L (15-37) 02/16/24 06:46 ALT 50 U/L (13-56) 02/16/24 06:46 Alkaline Phosphatase 76 U/L (45-117) 02/16/24 06:46 Triglycerides 47 mg/dL (<150) 02/16/24 16:36 Cholesterol 98 mg/dL (<200) 02/16/24 16:36 HDL Cholesterol 44 mg/dL (40-60) 02/16/24 16:36 Cholesterol/HDL Ratio 2.23 02/16/24 16:36 Lipase 46 U/L (13-75) 02/16/24 16:36 Home Medications: Acetazolamide [Diamox Sequels] 1 cap PO DAILY 02/16/24 Pantoprazole [Protonix Tab] 40 mg PO DAILY 30 Days #30 tab 02/18/24 Promethazine Tab [Phenergan] 12.5 mg PO Q6HP PRN 10 Days #40 tab 02/18/24 traMADol HCL [Ultram*] 50 mg PO Q6H PRN 5 Days #15 tab 02/18/24 New Medications: Promethazine Tab [Phenergan] 12.5 mg PO Q6HP PRN 10 Days #40 tab PRN Reason: Nausea / Vomiting Pantoprazole [Protonix Tab] 40 mg PO DAILY 30 Days #30 tab traMADol HCL [Ultram*] 50 mg PO Q6H PRN 5 Days #15 tab PRN Reason: Pain Physician Discharge Instructions: 1. Please call and schedule a follow-up appointment with your PCP in 3-5 days - Please follow-up with your PCP for medication refills/adjustments 2. Please call and schedule a follow-up appointment with Dr. Quezada in one week -Stop Surjit 3. Continue Full liquid diet to soft GI as tolerated 4. activity restrictions 5. Return to the ED if symptoms worsen New medications Protonix 40 mg p.o. daily Phenergan 12.5 mg p.o. every 6 hours as needed for nausea vomiting Tramadol 50 mg every 6 hours x 15 doses Diet: soft GI Activity: Ad maureen Followup: Kale Luu MD [Primary Care Provider] - 1-2 Weeks Shane Quezada MD [ACTIVE - CAN ADMIT] - 1-2 Weeks
[2024-02-18 12:07] VITALS: BP 131/84; TEMP 98.6
[2024-02-19] MEDS ORDERED: D5NS KCL 20MEQ 1,000 ML IV SCH (01:00)
== END 2024-02-18 12:25 | disposition home or self-care (01) | DRG 392 ==
LOC: ER 06:20 → ERHOLD 08:51 → 4TH 09:39 → OBSVTOIN 02-17 12:57
PROVIDERS: ADMIT Internal Medicine; ATTEND Hospitalist
DX: K29.70 Gastritis, unspecified, without bleeding (principal); E87.20 Acidosis, unspecified; E87.6 Hypokalemia; E86.0 Dehydration; E66.9 Obesity, unspecified; J98.4 Other disorders of lung; G93.2 Benign intracranial hypertension; E88.89 Other specified metabolic disorders; Z88.5 Allergy status to narcotic agent; Z88.1 Allergy status to other antibiotic agents; Z68.35 Body mass index [BMI] 35.0-35.9, adult; Z79.899 Other long term (current) drug therapy
CPT/HCPCS: 36415; 71045; 74177; 76705; 80048; 80061; 80076; 80307; 81001; 81025; 83690; 83735; 83880; 84100; 84132; 84484; 85025; 96365; 96366; 96375; 99285; G0378; J1171; J1650; J2405; J2470; J2550; J3475; J3480; J7030; J7042; Q9967

== ENCOUNTER 2024-03-16 08:06 | Emergency (ER) | payer BC ==
--- NOTE | 2024-03-16 09:11 | RAD REPORT ---
EXAMINATION: TWO VIEW CHEST XR CLINICAL INDICATION: COUGH TECHNIQUE: 2 views of the chest was performed. COMPARISON: No prior exam. FINDINGS: The lungs are well inflated and clear. The heart is normal in size. No displaced fractures evident. IMPRESSION: No acute or significant abnormalities.
[2024-03-16 09:20] LABS: SARS-CoV-2 Antigen CONTROL BLUE LINE VIS/BG OK; SARS-CoV-2 Antigen Rapid Res Negative (Negative)
--- NOTE | 2024-03-16 09:23 | ER ---
Nurse's Notes [facility] Name: Kacie Storm Age: 24 yrs Sex: Female : 2000 Arrival Date: 03/16/2024 Time: 08:06 Bed 11 Private MD: Diagnosis: Influenza due to identified novel influenza A virus Presentation: 03/16 08:14 Chief complaint: Patient states: fatigue and chills that began this morning. ss recently diagnosed with FLU A\T\B. Coronavirus screen: Client denies travel out of the [place] in the last 14 days. Ebola Screen: Patient denies exposure to infectious person. Patient denies travel to an Ebola-affected area in the 21 days before illness onset. Initial Sepsis Screen: Does the patient meet any 2 criteria? No. Patient's initial sepsis screen is negative. Does the patient have a suspected source of infection? No. Patient's initial sepsis screen is negative. Risk Assessment: Do you want to hurt yourself or someone else? Patient reports no desire to harm self or others. Onset of symptoms was March 16, 2024. 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 - Infectious Disease History:: Denies. - Social history:: Smoking status: Patient denies any tobacco usage or history of. Screenin:22 [facility] ED Fall Risk Assessment (Adult) History of falling in the last 3 months, rs5 including since admission No falls in past 3 months (0 pts) Confusion or Disorientation No (0 pts) Intoxicated or Sedated No (0 pts) Impaired Gait No (0 pts) Mobility Assist Device Used No (0 pt) Altered Elimination No (0 pt) Score/Fall Risk Level 0 - 2 = Low Risk Oriented to surroundings, Maintained a safe environment. Abuse screen: Denies threats or abuse. Nutritional screening: No deficits noted. Tuberculosis screening: No symptoms or risk factors identified. Assessment: 08:22 General: Appears in no apparent distress. uncomfortable, Behavior is calm, cooperative. rs5 Pain: Denies pain. Neuro: Level of Consciousness is awake, alert, obeys commands, Oriented to person, place, time, situation, Reports generalized weakness . Cardiovascular: Patient's skin is warm and dry. Respiratory: Airway is patent Respiratory effort is even, unlabored, Respiratory pattern is regular, symmetrical. GI: Abdomen is round non-distended. : No signs and/or symptoms were reported regarding the genitourinary system. Derm: Skin is intact, Skin is pink, warm \T\ dry. Musculoskeletal: Range of motion: intact in all extremities. 08:22 EENT: Reports nasal congestion. rs5 09:15 Reassessment: Patient and/or family updated on plan of care and expected duration. Pain rs5 level reassessed. Patient is alert, oriented x 3, equal unlabored respirations, skin warm/dry/pink. Vital Signs: 08:14 Weight 87.09 kg; Height 5 ft. 3 in. ; Pain 4/10; ss 08:32 BP 118 / 77; Pulse 94; Resp 16; Temp 98.5(O); Pulse Ox 100% on R/A; ss 09:20 BP 115 / 71; Pulse 74; Resp 17; Pulse Ox 99% ; rs5 08:14 Body Mass Index 34.01 (87.09 kg, 160.02 cm) ss 08:14 Pain Scale: Adult ss ED Course: 08:11 Patient arrived in ED. ra3 08:11 Brooke Ortiz PA-C is PHCP. sb4 08:11 Jassi Castro MD is Attending Physician. sb4 08:15 Triage completed. ss 08:15 Arm band placed on right wrist. ss 08:18 Jesus Villagomez, YOBANY is Primary Nurse. rs5 08:22 Patient has correct armband on for positive identification. Placed in gown. Bed in low rs5 position. Call light in reach. Side rails up X2. 08:22 No provider procedures requiring assistance completed. rs5 09:04 Chest Pa And Lat (2 Views) XRAY In Process Unspecified. EDMS 09:15 Provided Education on: discharge instructions . rs5 09:19 Brooke Ortiz PA-C is PHCP. sb4 09:40 Patient did not have IV access during this emergency room visit. rs5 Administered Medications: No medications were administered Medication: 09:16 VIS not applicable for this client. rs5 Outcome: :22 Discharge ordered by . sb4 09:40 Discharged to home ambulatory, rs5 09:40 Condition: stable rs5 09:40 Discharge instructions given to patient, family, Instructed on discharge instructions, follow up and referral plans. medication usage, Demonstrated understanding of instructions, follow-up care, medications, Prescriptions given X , :41 Patient left the ED. ss Signatures: Dispatcher [employer] EDMS Nikole Sheppard, RN RN Brooke Quezada PA-C PA-C sb4 Jesus Villagomez RN RN rs5 Yvonne Karimi ra3
--- NOTE | 2024-03-16 09:23 | EDPHYS ---
Physician Documentation [facility] Name: Kacie Storm Age: 24 yrs Sex: Female : 2000 Arrival Date: 03/16/2024 Time: 08:06 Bed 11 Private MD: ED Physician Jassi Castro HPI: 03/16 08:29 This 24 yrs old Female presents to ER via Ambulatory with complaints of Flu Symptoms. sb4 08:33 chills, malaise, n/v, cough, abdominal cramps starting today. was diagnosed sb4 with flu and pneumonia last night. took zofran and protonix this morning which helped. daughter has similar symptoms. no chest pain or sob. 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 - Infectious Disease History:: Denies. - Social history:: Smoking status: Patient denies any tobacco usage or history of. ROS: 08:33 Cardiovascular: Negative for chest pain, palpitations, and edema, sb4 08:33 Constitutional: Positive for chills, fatigue, malaise, 08:33 Respiratory: Positive for cough, 08:33 Abdomen/GI: Positive for nausea and vomiting, 08:33 All other systems are negative, Exam: 08:33 Constitutional: This is a well developed, well nourished patient who is awake, alert, sb4 and in no acute distress. Head/Face: Normocephalic, atraumatic. Eyes: Extra-ocular motions intact. Periorbital areas with no swelling, redness, or edema. ENT: Mucous membranes moist. Cardiovascular: Regular rate and rhythm with a normal S1 and S2. Respiratory: No increased work of breathing, no retractions or nasal flaring. Abdomen/GI: Soft, non-tender, no distension. Skin: Warm, dry with normal turgor. Normal color with no rashes, no lesions, and no evidence of cellulitis. 08:35 ENT: TM's: are normal, no acute changes, Posterior pharynx: is normal, no acute sb4 changes, Vital Signs: 08:14 Weight 87.09 kg; Height 5 ft. 3 in. ; Pain 4/10; ss 08:32 BP 118 / 77; Pulse 94; Resp 16; Temp 98.5(O); Pulse Ox 100% on R/A; ss 09:20 BP 115 / 71; Pulse 74; Resp 17; Pulse Ox 99% ; rs5 08:14 Body Mass Index 34.01 (87.09 kg, 160.02 cm) ss 08:14 Pain Scale: Adult ss MDM: 08:14 Medical Screening Exam initiated sb4 09:12 Data reviewed: vital signs, nurses notes, lab test result(s), radiologic studies, and sb4 as a result, I will discharge patient. Counseling: I had a detailed discussion with the patient and/or guardian regarding the historical points, exam findings, and any diagnostic results supporting the discharge/admit diagnosis, lab results, radiology results, to return to the emergency department if symptoms worsen or persist or if there are any questions or concerns that arise at home. 03/16 08:23 Order name: Strep sb4 03/16 08:22 Order name: SARS RAPID; Complete Time: 09:22 sb4 03/16 08:22 Order name: Flu; Complete Time: 09:08 sb4 03/16 09:21 Order name: Throat Culture EDMS 03/16 08:22 Order name: Chest Pa And Lat (2 Views) XRAY; Complete Time: 09:12 sb4 Administered Medications: No medications were administered Disposition: 03/17 07:00 Co-signature as Attending Physician, Jassi Castro MD I reviewed the patient's care rn provided by the Advanced Practice Provider and agree with the diagnosis and treatment plan. Disposition Summary: 03/16/24 09:22 Discharge Ordered Notes: Location: Home sb4 Problem: new sb4 Symptoms: are unchanged sb4 Condition: Stable sb4 Diagnosis - Influenza due to identified novel influenza A virus sb4 Followup: sb4 - With: Emergency Department - When: As needed - Reason: Trouble breathing, Worsening of condition Discharge Instructions: - Discharge Summary Sheet sb4 - Influenza, Adult, [id number] sb4 Forms: - Work release form sb4 - Patient Portal Instructions sb4 - Leadership Thank You Letter sb4 Prescriptions: - Tamiflu 75 mg Oral capsule - take 1 tablet ORAL route every 12 hours for 5 days; 10 tablet; Refills: 0, sb4 Product Selection Permitted Signatures: Dispatcher [employer] EDMS Jassi Castro MD MD rn Blanchard, Shelby, RN RN ss Brown, Sophia, PA-C PA-C sb4 Corrections: (The following items were deleted from the chart) 03/16 08:23 08:23 SARS-COV-2 Antigen Rapid+I.LAB.BRZ ordered. EDMS EDMS 08:23 08:23 Influenza Screen (A \T\ B)+BA.LAB.BRZ ordered. EDMS EDMS 08:23 08:23 Group A Streptococcus Rapid Sc+BA.LAB.BRZ ordered. EDMS EDMS 08:23 08:23 Chest Pa And Lat (2 Views)+RAD.RAD.BRZ ordered. EDMS EDMS
[2024-03-16 12:34] VITALS: BP 118/77; TEMP 98.5; O2SAT 100
== END 2024-03-16 09:41 | disposition home or self-care (01) ==
LOC: ER 08:06
DX: J10.1 Influenza due to other identified influenza virus with other respiratory manifestations (principal); Z11.52 Encounter for screening for COVID-19
CPT/HCPCS: 36415; 71046; 87070; 87081; 87804; 87811; 99283